=== PATIENT | female | born 1965 | race Caucasian/White ===

== ENCOUNTER 2017-06-18 09:20 | Outpatient (CLI) | payer MEDICAID ==
[~2017-06-18] VITALS: Ht 165.1 cm; Wt 63.6 kg
[~2017-06-18 09:20] MED LIST: FERROUS SULFAT325 MG PO
[2017-06-18] MEDS ORDERED: LEVOTHYROXINE125 MCG PO (10:51)
[2017-06-18 10:57] VITALS: BP 110/58; Ht 165.1 cm; Wt 63.6 kg
--- NOTE | 2017-06-18 11:45 | NUR ---
AFTER PREMEDICATING ORDERED, FIRST UNIT OF PRBC'S HUNG WITH NS AND BLOOD TUBING. REGULAR DIET SERVED.
--- NOTE | 2017-06-18 12:15 | NUR ---
FIRST 50ML OF BLOOD HAS INFUSED, RATE INCREASED TO 150ML/HR VIA PUMP. NO SIGNS OF TRANSFUSION REACTION NOTED.
--- NOTE | 2017-06-18 14:00 | NUR ---
SECOND UNIT OF PRBC'S UP WITH NS AND BLOOD TUBING AT 60ML/HR FOR FIRST 50ML.
--- NOTE | 2017-06-18 14:30 | NUR ---
NO SIGNS OF TRANSFUSION REACTION. PRBC'S INCREASED TO 200ML/HR VIA PUMP.
--- NOTE | 2017-06-18 16:40 | NUR ---
LYING IN BED, DENIES COMPLAINTS, NO SIGNS OR SYMPTOMS OF TRANSFUSION REACTION. LEFT FOREARM PIV DC'D WITH TIP INTACT. DISCHARGE INSTRUCTIONS HAVE ALREADY BEEN GIVEN TO PATIENT, PATIENT WALKS OUT WITH FAMILY
== END 2017-06-18 16:40 | disposition home or self-care (01) ==
LOC: D.OPS 09:20
DX: D64.9 Anemia, unspecified (principal)

== ENCOUNTER 2017-11-13 05:43 | Day surgery (SDC) | payer MEDICAID ==
[2017-11-12 17:05] LABS: BASOPHILS 0.3 % (0-2); EOSINOPHILS 3.3 % (0-7); HEMATOCRIT 36.8 % (36.0-48.0); HEMOGLOBIN 11.8 g/dL (12-16); IMMATURE GRANULOCYTES 0.1 % (0-5); LYMPHOCYTES 26.1 % (15-50); MCH 27.1 pg (26.0-34.0); MCHC 32.1 g/dL (31.0-37.0); MCV 84.4 fL (80.0-100.0); MEAN PLATELET VOLUME 10.1 fL (7.4-10.4); MONOCYTES 11.3 % (2-11); NEUTROPHILS 58.9 % (40-80); PLATELET COUNT 289 10x3/uL (130-400); RBC 4.36 10x6/uL (4.00-5.40); RDW 13.3 % (11.5-14.5); WBC 7.1 10x3/uL (4.8-10.8)
[~2017-11-13] VITALS: Ht 167.6 cm; Wt 64.9 kg
[2017-11-13] VITALS (8 sets, daily range): BP systolic 108–127; BP diastolic 58–63; Ht 167.6 cm; Wt 64.9 kg
--- NOTE | ~2017-11-13 | OP ---
PATIENT NAME: ZOILA HURTADO MEDICAL RECORD: [id number] :69 LOCATION:[facility] ADMISSION DATE: SURGEON: TIM GUZMAN MD DATE OF OPERATION: 11/13/2017 DATE OF PROCEDURE: 11/13/2017 PREOPERATIVE DIAGNOSES: 1. Dysfunctional uterine bleeding. 2. Fibroid uterus. POSTOPERATIVE DIAGNOSES: 1. Dysfunctional uterine bleeding. 2. Fibroid uterus. PROCEDURE PERFORMED: Total laparoscopic hysterectomy with bilateral salpingo-oophorectomy. SURGEON: Tim Guzman MD TECHNICAL SERVICES REPRESENTATIVE: Pako. SOCIAL SCIENCE PROFESSOR is Yoselin Plummer. ANESTHESIOLOGIST: Dr. Cunha. FINDINGS: Enlarged uterus with irregular contour consistent with fibroids. There is a hydrosalpinx of the right tube. Both right and left ovaries are unremarkable. SPECIMENS REMOVED: Uterus with cervix, tubes and ovaries bilaterally. SPECIMEN DISPOSITION: Pathology. ESTIMATED BLOOD LOSS: Less than or equal to 150 cc. FLUIDS: 1100 cc of lactated Ringer's. URINE OUTPUT: 75 cc of concentrated urine. DRAINS: Bain to gravity, discontinued in the PACU. COMPLICATIONS: None. INDICATIONS: The patient is a 52-year-old female with irregular bleeding. The patient has underwent conservative therapy without relief of symptoms. The patient desires definitive treatment. Risks, benefits as well as limitations have been described. DESCRIPTION OF PROCEDURE: After informed consent was assured, the patient was taken to the operating room where anesthetic was obtained without difficulty. The patient was now prepped and draped in the usual sterile fashion. A uterine manipulator was placed. After placement of the uterine manipulator, attention was directed to the abdomen where an incision was made in the umbilicus to accommodate a 5-mm trocar. Through this trocar, camera was inserted and pneumoperitoneum was developed. The patient was in Trendelenburg and the bowel swept free of the pelvis. Accessory ports were placed in the right and left OPERATIVE REPORT [id number] ZOILA HURTADO lower quadrant. The right tube and ovary were elevated and the infundibulopelvic ligaments compressed, coagulated, and with the Harmonic scalpel. The dissection was carried underneath the ovary across the round ligament and the anterior leaf of the broad ligament was opened and the bladder flap developed to the midline. The adventitia was dissected posteriorly and the uterine vascular bundle exposed on the right. Using a [employer] coagulating cutter, the uterine bundle was compressed and coagulated on the right hand side. The vessels were now . The attention was directed to the left side where the tube and ovary were removed from its attachment from the infundibulopelvic ligament in similar fashion. Again, the dissection was carried across the round ligament and the anterior leaf of the broad ligament was opened. Posteriorly, the dissection was continued until the vessels were skeletonized. The vessels were now compressed, coagulated, and . The uterus was dissected free from the cuff beginning at the 3 o'clock position and working from 3 to 6. Dissection continued from 6 to 12. The remaining portion of the uterus attachment to the anterior vaginal vault was completed from the right side. The uterus was pulled down into the vagina and pneumoperitoneum was maintained. The pelvis was irrigated and all irrigant removed. Surgical field was inspected and adequate hemostasis has been achieved. The uterus, tubes and ovaries were passed through the vagina. Pneumoperitoneum was released. The cuff was now closed after performing a modified Sanchez's culdoplasty. This was performed by passing a stitch through the posterior cuff to the left of midline. The stitch now incorporates the left uterosacral ligament, the peritoneum posteriorly, comes out through the right uterosacral ligament and then has passed out the posterior cuff right of the midline. This was held to be tied at the later part of the case. Another Vicryl stitch was used to close the cuff from an anterior to posterior fashion with a running stitch. Stitches were locked over portions of the cuff that appeared to have bleeding. After closure of the cuff, the uterosacral plication was now tied in this way securing ligament support to the apex of the vagina. Sponge, lap and needle count was correct times 2 as the skin was reapproximated and sterile dressing applied. The patient was awake and went to the recovery area in stable condition. TRANSINT:[id number] Voice Confirmation ID: [id number] DOCUMENT ID: [id number] TIM GUZMAN MD at 0659 CC: [id number] DICTATION DATE: 11/13/17 0936 GRIEF COUNSELOR: 11/13/17 1206 [facility] 11/13/17 [id number] [place] [address]
[~2017-11-13 05:43] MED LIST changes: +LEVOTHYROXINE125 MCG PO; +PROVERA 5 MG TAB5 MG PO
[2017-11-13 07:20] LABS: HCG URINE NEGATIVE (NEGATIVE)
== END 2017-11-13 19:30 | disposition home or self-care (01) ==
LOC: D.OPS 05:43 → D.PAN 07:30 → D.LD 10:35 → D.OPS 19:30
PROVIDERS: Obstetrics & Gynecology
DX: N93.8 Other specified abnormal uterine and vaginal bleeding (principal); D25.9 Leiomyoma of uterus, unspecified; Z01.812 Encounter for preprocedural laboratory examination